=== PATIENT | female | born 2005 | race Caucasian/White ===

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

== ENCOUNTER → 2024-01-20 16:19 | Outpatient (CLI) | payer BC, SELFPAY ==
--- NOTE | 2024-01-20 16:24 | DI.RAD.S_ITS ---
PROCEDURE: XR FOOT RT MIN 3V INDICATIONS: RIGHT FOOT INJURY/PAIN TECHNIQUE: 3 views of the foot were acquired. COMPARISON: None. FINDINGS: Bones: No fractures or dislocations. No suspicious bony lesions. Soft tissues: No tibiotalar joint effusion. Achilles tendon appears normal. IMPRESSION: No acute bony abnormality. Dictated by: Antonio Frye M.D. on 01/20/2024 at 15:46 Approved by: Antonio Frye M.D. on 01/20/2024 at 15:46
== END ==
LOC: DI 16:23
PROVIDERS: PCP Family Medicine; Referring Provider Physician Assistant Surgical; Visit Provider Physician Assistant Surgical
DX: S99.921A Unspecified injury of right foot, initial encounter (principal); X58.XXXA Exposure to other specified factors, initial encounter
CPT/HCPCS: 73630

== ENCOUNTER 2024-02-10 16:35 | Emergency (ER) | payer OTHER, SELFPAY ==
[2024-02-10 16:44] VITALS: BP 116/68; PULSE 77; RESP 16; TEMP 36.4; O2SAT 98; BMI 22.1
== END 2024-02-10 17:20 | disposition left against medical advice (07) ==
PROVIDERS: Emergency Provider Emergency Medicine; PCP Family Medicine
CPT/HCPCS: 99281

== ENCOUNTER 2024-07-20 17:39 | Emergency (ER) | payer OTHER, SELFPAY ==
[2024-07-20 17:52] VITALS: BP 127/66; PULSE 101; RESP 18; TEMP 36.6; O2SAT 99; BMI 25.5
--- NOTE | 2024-07-20 17:59 | DI.RAD.S_ITS ---
PROCEDURE: XR KNEE RT 3V INDICATIONS: Patient fell from [employer] and caught rt foot on rope TECHNIQUE: 3 views of the knee were acquired. COMPARISON: None. FINDINGS: Bones: No acute displaced fracture or dislocation. Soft tissues: No suspicious calcifications or significant effusion. IMPRESSION: No acute radiographic abnormality. If there is high concern for further derangement, consider MRI evaluation. Dictated by: William Casey M.D. on 07/20/2024 at 17:47 Approved by: William Casey M.D. on 07/20/2024 at 17:47
--- NOTE | 2024-07-20 20:55 | ED_ITS ---
HPI - Extremity Injury (Lower) General Chief Complaint: Extremity Injury, Lower Stated Complaint: Right knee pain/fall injury Time Seen by Provider: 07/20/24 19:53 Source: patient Mode of arrival: Wheelchair History of Present Illness HPI Narrative: Anterior year old female with history of right shoulder surgery, followed by Orthopedic surgery in [place], also had problems with both knees, some kind of laxity problems, no surgical interventions to either knee, tonight was at swimming pool working, climbing rope over deep end, fell into the deep and feet 1st from about 8 ft height, felt a twinge of pain in her right knee, worse as she was able to swim herself over to the shallow end, when she attempted to straighten and bear weight on the right leg, more right knee area pain. She had swelling to the right knee. No head injury, no neck pain, no right shoulder or other extremity injuries. The left knee was not injured. No back pain. He has not taken any medications for it thus far. Related Data Previous Rx's Medication Instructions Recorded fluoxetine 20 mg capsule See Rx Instructions .Route 03/18/24 .COMPLEX #90 caps trazodone 50 mg tablet 50 mg PO BEDTIME #90 tabs 03/18/24 etonogestrel 68 mg subdermal 1 implant subdermal ONCE #1 ea 04/15/24 implant (Nexplanon) Allergies Allergy/AdvReac Type Severity Reaction Status Date / Time No Known Drug Allergies Allergy Verified 05/26/24 15:45 Patient History Medical History Right anterior knee pain Contraception management Seasonal allergic rhinitis Eczema Acne Depression Shoulder pain Anorexia Dysmenorrhea Impingement syndrome of right shoulder Skin rash Strain of tendon of right rotator cuff URI (upper respiratory infection) Anxiety Surgical History Anesthesia History of shoulder surgery (~11/11/21) Social History Smoking Status: Former smoker second hand exposure: No alcohol intake: never substance use type: does not use Smoking Status: Former smoker Exam Narrative Exam Narrative: GENERAL: Well-developed patient, in mild distress. HEAD: Atraumatic. Normocephalic. EYES: Pupils equal round and reactive. Extraocular motions intact. No scleral icterus. No injection or drainage. ENT: Nose without bleeding, purulent drainage. Throat without erythema, tonsillar hypertrophy or exudate. Airway patent. NECK: Trachea midline. Non tender CARDIOVASCULAR: Regular rate and rhythm without murmurs, gallops, or rubs. RESPIRATORY: Clear to auscultation. Breath sounds equal bilaterally. No wheezes, rales, or rhonchi. GASTROINTESTINAL: Abdomen soft, non-tender, nondistended. EXTREMITIES: Right knee in slight flexed position with pillow under popliteal position of comfort, can fully extend, no gross effusion. No displacement of patella, no tenderness along the patellar tendon. No significant medial or lateral joint line tenderness. She is in too much discomfort to really tolerate any lateral or medial stress. She did allow Blanche's maneuver, no gross anterior-posterior instability. No skin changes, abrasions, contusion, laceration. BACK: Nontender without deformity or crepitance. No flank tenderness. NEURO: AOx3. Motor functions grossly nonfocal SKIN: No rash or erythema of visible areas Initial Vital Signs Initial Vital Signs: Vital Signs Temperature 97.9 F 07/20/24 17:52 Pulse Rate 101 H 07/20/24 17:52 Respiratory Rate 18 07/20/24 17:52 Blood Pressure 127/66 07/20/24 17:52 Pulse Oximetry 99 07/20/24 17:52 Oxygen Delivery Method Room Air 07/20/24 17:52 Course Orders Ordered: ED Orders 07/20/24 17:59 XR knee RT 3V Stat Vital Signs Vital signs: Vital Signs - 8 hr 07/20/24 21:41 Pulse Rate 84 Respiratory Rate 16 Blood Pressure 124/60 Pulse Oximetry 99 Oxygen Delivery Method Room Air MDM - Extremity Injury (Lower) Imaging Data Extremity x-ray #1: Radiologist's Impression: [address] [address] XRay Report Signed Patient: Leyda Otero MR#: [id number] : 2005 Acct:[id number] Age/Sex: 18 / F Date of Service: 07/20/24 Loc: ED Accession Number: [id number] Procedure: XR knee RT 3V Ordering Provider: Siomara Maldonado D.O. PROCEDURE: XR KNEE RT 3V INDICATIONS: Patient fell from [employer] and caught rt foot on rope TECHNIQUE: 3 views of the knee were acquired. COMPARISON: None. FINDINGS: Bones: No acute displaced fracture or dislocation. Soft tissues: No suspicious calcifications or significant effusion. IMPRESSION: No acute radiographic abnormality. If there is high concern for further derangement, consider MRI evaluation. Dictated by: William Casey M.D. on 07/20/2024 at 17:47 Approved by: William Casey M.D. on 07/20/2024 at 17:47 [facility] Narrative Medical decision making narrative: 18-year-old female with fall into pool from rope into the deep end, right knee pain, worse with extension as she swam over to the shallow end, no drowning or submersion, no head or neck injuries, no back injuries. Isolated right knee pain, no other injuries to upper and lower extremities. Right knee pain and popping sensation. No gross effusion or deformity to the right knee, no medial or lateral joint line tenderness, Blanche's maneuver without grossly obvious anterior-posterior instability, did not attempt stress medial lateral due to significant pain. X-ray requested from triage. X-ray right knee, no acute changes, see radiology report. Crutches, knee immobilizer. We discussed Tylenol and or Motrin, they would like to take this at home, no medications dispensed from here. She will follow up with her [facility] orthopedic surgeon, call their office tomorrow Sunday, to further assessed for right knee ligament injury, history concerning for internal derangement/ligamentous injury. Nonweightbearing with crutches in knee immobilizer advised. Ice and elevation. Follow up with Orthopedic surgery as planned in [place] early this week. Return precautions discussed. Home with mother. Discharge Plan Departure Patient Disposition: Home Clinical Impression: Strain of right knee Activity Restrictions/Additional Instructions: Right knee popping in pain symptoms after fall into pool water from about 8 ft height deep end, worse pain with extension of the right leg at the level of the right knee once at the shallow end, no drowning or near-drowning, no injuries obvious to head neck or spine. Isolated pain to the right knee at this time. On examination there seems to be pretty good stability with Blanche's maneuver anterior posterior, no gross instability. We had not tried valgus or varus stresses of the collateral ligaments as this likely be too painful. Likewise we did not stress the meniscal ligaments as this likely would be too painful. No tenderness along the medial joint line or lateral joint line. However history is concerning for possible ligamentous injury. Plain film x-ray of the right knee without bony injuries. Placed in knee immobilizer, crutches. Offered pain medications here, declined. Take [id number] ibuprofen/Tylenol as needed for pain control. Nonweightbearing right lower extremity in knee immobilizer, with use of crutches. Follow up with Orthopedic surgery, you have an established orthopedic surgeon in the [place] area for previous right shoulder pain, you will be calling their office tomorrow morning to arrange close follow up with that orthopedic surgery/group. Return earlier to this/nearest emergency department for any change worsening symptoms or any concerns prior Prescriptions: No Action trazodone 50 mg tablet 50 mg PO BEDTIME Qty: 90 3RF fluoxetine 20 mg capsule See Rx Instructions .ROUTE .COMPLEX Qty: 90 1RF Dose Instruction: take 1 capsule by mouth once daily Rx Instructions: take 1 capsule by mouth once daily Nexplanon 68 mg implant 1 implant subdermal ONCE Qty: 1 0RF Rx Instructions: Implanted today in left arm by Dr Janel Barrett DO Remove 2026 Referrals: Matt Damon DO [Primary Care Provider] - Stand Alone Forms: Patient Portal/API/Survey
[2024-07-20 21:41] VITALS: BP 124/60; PULSE 84; RESP 16; O2SAT 99
== END 2024-07-20 21:41 | disposition home or self-care (01) ==
PROVIDERS: Emergency Provider Emergency Medicine; PCP Family Medicine
DX: S86.811A Strain of other muscle(s) and tendon(s) at lower leg level, right leg, initial encounter (principal); W17.89XA Other fall from one level to another, initial encounter; Y93.39 Activity, other involving climbing, rappelling and jumping off
CPT/HCPCS: 73562; 99283

== ENCOUNTER → 2025-05-05 15:47 | Outpatient (CLI) | payer OTHER, SELFPAY ==
--- NOTE | 2025-05-05 15:48 | DI.MRI.S_ITS ---
PROCEDURE: MR KNEE RT WO CON INDICATIONS: Right knee pain; decreased mobility TECHNIQUE: Noncontrast sagittal PD fast spin echo and T2 fast spin echo with fat saturation, sagittal 3-D FLASH with fat saturation; coronal T1 spin echo and PD fast spin echo with fat saturation, and axial PD fast spin echo with fat saturation through the knee. COMPARISON: None. FINDINGS: Image quality: Excellent Menisci: The medial and lateral menisci demonstrate normal morphology and internal signal. The meniscal root ligaments appear intact. Cruciate ligaments: The anterior and posterior cruciate ligaments appear intact. Medial structures: The medial collateral ligament appears intact. The posterior oblique ligament, semimembranosus tendon insertions, oblique popliteal ligament, and meniscocapsular junction appear intact. Visualized portions of the pes anserinus tendons appear normal. No abnormal bursal fluid. Lateral structures: The lateral collateral ligament, long and short heads of the biceps femoris tendon appear intact. The popliteus tendon appears normal; the popliteofibular ligament appears intact. The posterosuperior and anteroinferior popliteomeniscal fascicles appear intact. The arcuate and fabellofibular ligaments appear intact, on either side of the lateral inferior geniculate artery. Iliotibial band appears normal. Anterior structures: The quadriceps and patellar tendon are intact. Superolateral Hoffa's fat pad edema, raising concern for patellar maltracking. Alignment of the patellofemoral compartment is anatomic. The medial and lateral patellofemoral ligaments are intact. Bones and cartilage: No bone marrow contusions or fractures. The cartilage of the medial and lateral femorotibial compartments, as well as the patellofemoral compartment, appears normal in thickness. Joint space: There is physiologic knee joint fluid. No Broussard's cyst. Normal appearing synovial plicae are incidentally noted. IMPRESSION: Findings suggestive of patellar maltracking. Dictated by: Marce Ibarra M.D. on 05/05/2025 at 16:51 Approved by: Marce Ibarra M.D. on 05/05/2025 at 17:01
== END ==
LOC: MRI 15:47
PROVIDERS: PCP Family Medicine; Referring Provider Orthopaedic Surgery Sports Medicine; Visit Provider Orthopaedic Surgery Sports Medicine
DX: M25.361 Other instability, right knee (principal)
CPT/HCPCS: 73721